=== PATIENT | female | born 1965 | race Caucasian/White ===

== ENCOUNTER 2023-01-18 13:28 | Outpatient (AMB) | payer OTHER, SELFPAY ==
[2023-01-18 13:35] VITALS: BP 140/96; PULSE 63; O2SAT 97; BMI 39.6
--- NOTE | 2023-01-18 13:35 | A.OFFPC_ITS ---
Vital Signs 01/18/23 13:35 01/18/23 15:05 Height 5 ft 2.5 in Weight 220 lb BMI 39.6 BP 140/96 H 120/85 Blood Pressure Location Lt brachial Lt brachial Position Sitting Sitting Pulse 63 Pulse Source Pulse Oximeter Pulse Oximetry (%) 97 Oxygen Delivery Method Room Air Intake Visit Reasons: Follow up after Urgent Care ongoing cough Intake Note: Pt is here today for a follow up visit on ongoing cough. Pt states that she has been having a cough since December 08. Pt states that she was seen a Urgent care multiple times. Pt states that she has a lot of yellow/green mucus. Allergies No Known Allergies Allergy (Verified 01/18/23 13:40) Medication List - Last Reconciled 01/18/23 by Rowan Downey MD famotidine (Pepcid) 40 mg PO BEDTIME ketoconazole 2% 1 appl topical DAILY nystatin 1 appl topical DAILY Tobacco use date assessed: 01/18/23 Dental Screening Dental Screen Date: 01/18/23 Did you have a dental visit in the last 12 months?: Yes Did you have a dental problem in the last 6 months where you did not have access to dental care?: No Was dental information given to patient?: Patient has dentist HPI Follow up after Urgent Care ongoing cough HPI0 Details Pt c/o persistent nasal discharge yellow-green and productive cough since October. Patient has been to urgent care multiple times and tried Flonase, albuterol inhaler, prednisone taper and antibiotic and cough meds without relief. CXR was negative on 12/16. 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 Patient denies chronic heartburn facial pain fever chills shortness of breath wheezing. She has been taking Zyrtec regularly but stopped taking famotidine. [facility] Medical History Dysuria Cough Sinusitis chronic, frontal GERD (gastroesophageal reflux disease) Annual physical exam Surgical History Hx of colonoscopy Social History Housing: House Patient Tobacco Use Status: Former Tobacco user e-Cigarette/Vaping Use: Never Used Current occupational status: employed Cognitive needs: No Hearing needs: No Vision needs: Yes Questionnaire Thrive Questionnaire Date Thrive assessed: 08/05/22 AUDIT C Alcohol Use Questionnaire (AUDIT-C) 1. How often do you have a drink containing alcohol?: Monthly or less 2. How many drinks containing alcohol do you have on a typical day when you are drinking?: 1 or 2 3. How often do you have six or more drinks on one occasion?: Never Total Score: 1 CECILIO-7 AMB Questionnaire CECILIO-7 Date CECILIO - 7 assessed: 08/05/22 Source: Developed by Drs. Rudy Harmon, Jasmin Brooke, Donald Garcia and colleagues, with an educational candido from [employer]. Review of Systems Const All systems reviewed & are unremarkable except as noted in HPI and below Reports no additional complaints Eyes Reports no additional complaints ENT Reports no additional complaints Card Reports no additional complaints Resp Reports no additional complaints GI Reports no additional complaints Physical exam (Primary Care) Vital Signs: Last Vital Signs Pulse 63 01/18/23 13:35 BP 140/96 H 01/18/23 13:35 Pulse Ox 97 01/18/23 13:35 Oxygen Delivery Method Room Air 01/18/23 13:35 BMI result Body Mass Index 39.6 Tobacco/Smoking Status: Tobacco use Status Tobacco use date assessed 01/18/23 01/18/23 13:41 Patient Tobacco Use Status Former Tobacco user 01/18/23 13:36 e-Cigarette/Vaping Use Never Used 01/18/23 13:36 Thrive Assessment: Date of Thrive Assessment Date Thrive assessed 08/05/22 01/18/23 13:36 Const General: no acute distress HENMT Head: Yes normal to inspection Ears: TM's normal bilaterally General nose exam: Normal nasal mucous membranes and turbinates present Face and sinus: Yes normal facial exam and No sinus tenderness Mouth: Normal oral and palatal mucosa present Throat: Yes posterior oropharynx normal and Yes postnasal drainage Eyes General: appearance normal, both eyes and all related structures Neck Neck: Yes no lymphadenopathy and Yes supple Resp Effort & Inspection: normal respiratory effort Auscultation: clear to auscultation bilaterally Cardio Rhythm: regular rhythm Heart sounds: S1 normal heart sound present and S2 normal heart sound present Assessment and Plan Assessment & Plan (1) Sinusitis chronic, frontal: Code(s): J32.1 - Chronic frontal sinusitis Plan: For recurrent chronic sinusitis patient will be referred to ENT for evaluation (2) Postnasal drip: Code(s): R09.82 - Postnasal drip Plan: Patient was advised to continue antihistamine and restart H2 gloria famotidine q.h.s. (3) Cough: Code(s): R05.9 - Cough, unspecified Plan: Continue saline nasal spray antihistamine and H2 gloria if the symptoms persist PFTs will be obtained to rule out asthma. Orders: Orders Comprehensive Met. Panel Today J32.1 - Chronic frontal sinusitis, R09.82 - Postnasal drip Sputum Cult + Gram stain Today R05.9 - Cough, unspecified Immunoglobulin E Today J32.1 - Chronic frontal sinusitis, R05.9 - Cough, unspecified Complete Blood Count Auto Diff Today J32.1 - Chronic frontal sinusitis, R09.82 - Postnasal drip Immunoglobulins,IgG IgA IgM Today J32.1 - Chronic frontal sinusitis, R05.9 - Cough, unspecified Referrals Ear/Nose/Throat Referral J32.1 - Chronic frontal sinusitis Coding Level of Care Code Est Pt Level 3 (99633) Diagnoses Sinusitis chronic, frontal J32.1 Postnasal drip R09.82 Cough R05.9
[2023-01-18 15:05] VITALS: BP 120/85
== END 2023-01-18 15:14 | disposition home or self-care (01) ==
PROVIDERS: PCP Internal Medicine; Visit Provider Internal Medicine
DX: J32.1 Chronic frontal sinusitis (principal); R09.82 Postnasal drip; R05.9 Cough, unspecified
CPT/HCPCS: 99213

== ENCOUNTER 2023-08-12 08:00 | Outpatient (AMB) | payer OTHER, SELFPAY ==
--- NOTE | 2023-08-12 08:04 | A.OFFPC_ITS ---
Vital Signs 08/12/23 08:05 Height 5 ft 2.5 in Weight 222 lb BMI 40.0 BP 124/80 Blood Pressure Location Lt brachial Position Sitting Pulse 67 Pulse Source Pulse Oximeter Pulse Oximetry (%) 97 Oxygen Delivery Method Room Air Intake Visit Reasons: Physical exam Intake Note: Pt is here today for PE. 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 Allergies No Known Allergies Allergy (Verified 08/12/23 08:06) Medication List - Last Reconciled 08/12/23 by Rowan Downey MD famotidine (Pepcid) 40 mg PO BEDTIME ipratropium bromide 2 sprays intranasal BID-TID PRN ketoconazole 2% 1 appl topical DAILY nystatin 1 appl topical DAILY Tobacco use date assessed: 08/12/23 Dental Screening Dental Screen Date: 08/12/23 Did you have a dental visit in the last 12 months?: Yes Did you have a dental problem in the last 6 months where you did not have access to dental care?: No Was dental information given to patient?: Patient has dentist HPI Physical exam HPI Details Pt presents for PE. [facility] Medical History Dysuria Cough Sinusitis chronic, frontal GERD (gastroesophageal reflux disease) Annual physical exam Surgical History Hx of colonoscopy Social History Housing: House Patient Tobacco Use Status: Former Tobacco user e-Cigarette/Vaping Use: Never Used service: No Current occupational status: employed Cognitive needs: No Hearing needs: No Vision needs: Yes Questionnaire PHQ-9 Over the last 2 weeks, how often have you been bothered by any of the following problems? 1. Little interest or pleasure in doing things: not at all 2. Feeling down, depressed, or hopeless: not at all 3. Trouble falling or staying asleep, or sleeping too much: several days 4. Feeling tired or having little energy: not at all 5. Poor appetite or overeating: not at all 6. Feeling bad about yourself - or that you are a failure or have let yourself or your family down: not at all 7. Trouble concentrating on things, such as reading the newspaper or watching television: not at all 8. Moving or speaking so slowly that other people could have noticed. Or the opposite - being so fidgety or restless that you have been moving around a lot more than usual: not at all 9. Thoughts that you would be better off or of hurting yourself in some way: not at all Total score: 1 Depression Screening Interpretation: Negative Depression Screening Done: Yes Source: Developed by Drs. Rudy Harmon, Jasmin Brooke, Donald Garcia and colleagues, with an educational candido from [employer] Thrive Questionnaire Date Thrive assessed: 08/12/23 I am a: Patient What is your living situation today?: I have a steady place to live Within the past 12 months, did the food you bought not last and you didn't have the money to get more?: Never true Within the past 12 months, did you worry whether your food would run out before you got money to buy more?: Never true Do you have trouble paying for medicines?: No Do you have trouble getting transportation to medical appointments?: No Do you have trouble paying your heating and electricity bill?: No Do you have trouble taking care of your child, family member or friend?: No Do you have trouble with day-to-day activities such as bathing, preparing meals, shopping, managing finances, etc.?: No Are you currently unemployed and looking for a job?: No Are you interested in more education?: No Please select the resources that you would like help with: None THRIVE Score: 0 AUDIT C Alcohol Use Questionnaire (AUDIT-C) 1. How often do you have a drink containing alcohol?: Monthly or less 2. How many drinks containing alcohol do you have on a typical day when you are drinking?: 1 or 2 3. How often do you have six or more drinks on one occasion?: Never Total Score: 1 CECILIO-7 AMB Questionnaire CECILIO-7 Date CECILIO - 7 assessed: 08/12/23 Feeling nervous, anxious, or on edge: 0 = Not at all Not being able to stop or control worryin = Not at all Worrying too much about different things: 0 = Not at all Trouble relaxin = Not at all Being so restless that it is hard to sit still: 0 = Not at all Becoming easily annoyed or irritable: 0 = Not at all Feeling afraid as if something awful might happen: 0 = Not at all Total CECILIO-7 score (0-4 normal; 5-9 mild; 10-14 moderate; 15-21 severe): 0 Source: Developed by Drs. Rudy Harmon, Jasmin Brooke, Donald Garcia and colleagues, with an educational candido from [employer] Review of Systems Const All systems reviewed & are unremarkable except as noted in HPI and below Reports no additional complaints Eyes Reports no additional complaints ENT Reports no additional complaints Card Reports no additional complaints Resp Reports no additional complaints GI Reports no additional complaints Reports no additional complaints Musc Reports no additional complaints Physical exam (Primary Care) Vital Signs: Last Vital Signs Pulse 67 08/12/23 08:05 BP 124/80 08/12/23 08:05 Pulse Ox 97 08/12/23 08:05 Oxygen Delivery Method Room Air 08/12/23 08:05 BMI result Body Mass Index 40.0 Tobacco/Smoking Status: Tobacco use Status Tobacco use date assessed 08/12/23 08/12/23 08:09 Patient Tobacco Use Status Former Tobacco user 08/12/23 08:04 e-Cigarette/Vaping Use Never Used 08/12/23 08:04 PHQ-9: PHQ-9 Score PHQ-9: Total score 1 08/12/23 08:30 Depression Screening Interpretation: Negative Thrive Assessment: Date of Thrive Assessment Date Thrive assessed 08/12/23 08/12/23 08:18 Const General: no acute distress HENMT Head: Yes normal to inspection Ears: hearing grossly normal bilaterally General nose exam: Normal external nose present Face and sinus: Yes normal facial exam Mouth: Normal oral and palatal mucosa present Throat: Yes posterior oropharynx normal Eyes General: appearance normal, both eyes and all related structures Neck Neck: Yes no lymphadenopathy and Yes supple Resp Effort & Inspection: normal respiratory effort Auscultation: clear to auscultation bilaterally Cardio Rhythm: regular rhythm Heart sounds: S1 normal heart sound present and S2 normal heart sound present GI Inspection: Yes normal to inspection Palpation (GI): Soft to palpation Percussion: Yes normal to percussion Auscultation: normal bowel sounds General: Yes Bimanual renal exam normal bilaterally Assessment and Plan Assessment & Plan (1) Hx of colonoscopy: Comment: 06/23 negative recheck 10 years Code(s): Z98.890 - Other specified postprocedural states (2) Annual physical exam: Code(s): Z00.00 - Encounter for general adult medical examination without abnormal findings Plan: Well-balanced diet regular physical activity discussed with the patient. She is up-to-date with a mammogram Pap smear and colonoscopy. (3) Normal pelvic exam: Comment: ob/gyn nurse 2023 Code(s): Z01.419 - Encounter for gynecological examination (general) (routine) without abnormal findings (4) Hx of screening mammography: Comment: 01/2023 Code(s): Z92.89 - Personal history of other medical treatment Orders: Orders Comprehensive [place]. Panel Fast Today Z00.00 - Encounter for general adult medical examination without abnormal findings TSH reflex Free T4 Today Z00.00 - Encounter for general adult medical examination without abnormal findings Vitamin D 25-OH Total Today Z00.00 - Encounter for general adult medical examination without abnormal findings Complete Blood Count Auto Diff Today Z00.00 - Encounter for general adult medical examination without abnormal findings Lipid Panel Today Z00.00 - Encounter for general adult medical examination without abnormal findings Vitamin B12 and Folate Today Z00.00 - Encounter for general adult medical examination without abnormal findings IRON PROFILE Today Z00.00 - Encounter for general adult medical examination without abnormal findings Coding Level of Care Code Est Pt Prev Care 40-64y(28626) Diagnoses Hx of colonoscopy Z98.890 Annual physical exam Z00.00 Normal pelvic exam Z01.419 Hx of screening mammography Z92.89
[2023-08-12 08:05] VITALS: BP 124/80; PULSE 67; O2SAT 97; BMI 40.0
== END 2023-08-12 08:55 | disposition home or self-care (01) ==
PROVIDERS: Visit Provider Internal Medicine
DX: Z98.890 Other specified postprocedural states (principal); Z00.00 Encounter for general adult medical examination without abnormal findings; Z01.419 Encounter for gynecological examination (general) (routine) without abnormal findings; Z92.89 Personal history of other medical treatment
CPT/HCPCS: 99396

== ENCOUNTER 2024-08-17 07:58 | Outpatient (AMB) | payer OTHER, SELFPAY ==
--- OUTSIDE RECORDS SUMMARY | 2024-08-17 08:03 | XMS_ITS ---
Author Organization [facility] Address [address] [address] Care Team Providers Care Weight Analyst Name Role Phone Shayan Rowan Primary Care Provider UnavailNENA Baumann Unavailable [phone] Allergies No Known Allergies REASON FOR VISIT Lt foot pain Medications Medication SIG (Take, Route, Frequency, Duration) Notes Start Date End Date Status Famotidine 40 MG 1 tablet Orally Once a day Not-Taking Ipratropium [place] 0.03 % 2 sprays in each nostril Nasally Twice a day Not-Taking Ketoconazole 2 % 1 application Externally Once a day Not-Taking Nystatin Not-Taking Problems Problem Type SNOMED Code ICD Code Onset Dates Problem Status W/U Status Risk Notes Problem 09127744760705 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 [address] [address] 04/21/2024 NENA TERRELL Left foot pain M79.6 72 ; Fibrosis of left subtalar joint M24.672 and Gastrocnemius equinus of left lower extremity M62.462 Assessments Encounter Date Diagnosis (ICD Code) Assessment Notes Treatment Notes Treatment Clinical Notes Section Notes 04/21/2024 Left foot pain (ICD-10 - M79.672) Patient examined and evaluated. Past medical history reviewed. Three weightbearing radiographs of the left foot were taken in the office today. She has pain around her left subtalar joint and into the left sinus tarsi with any increase in activty or uneven surface ambulation. 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 This is likely a culprit of the pain. She also has significant calf tightness. I advised that she needs to start calf stretching before and after any activity. I also advised using an ankle brace on the left when doing any prolonged walking to help stabilize the rearfoot joints. I gave her stretching exercises and brace recommendations. If her pain continues or worsens, I advise she follow back up in the office. She expressed understanding of this. 04/21/2024 Fibrosis of left subtalar joint (ICD-10 - M24.672) 04/21/2024 Gastrocnemius equinus of left lower extremity (ICD-10 - M62.462) Plan Of Treatment Treatment Notes Assessment Notes Left foot pain Patient examined and evaluated. Past medical history reviewed. Three weightbearing radiographs of the left foot were taken in the office today. She has pain around her left subtalar joint and into the left sinus tarsi with any increase in activty or uneven surface ambulation. 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 This is likely a culprit of the pain. She also has significant calf tightness. I advised that she needs to start calf stretching before and after any activity. I also advised using an ankle brace on the left when doing any prolonged walking to help stabilize the rearfoot joints. I gave her stretching exercises and brace recommendations. If her pain continues or worsens, I advise she follow back up in the office. She expressed understanding of this. Pending Test Test Name Order Date X ray : Foot, left 3v 04/21/2024 Progress Notes * Mary LESTERraDOB: 6 (58 yo F)Acc No.[id number]:04/21/2024 Consult note Patient:?Amy LESTER Provider:?Nena Lynn DPM :1965???Age:58 Y???Sex:Female D ate:04/21/2024 Phone: Address:[address] [place], [place] [address], [id number] Pcp:Rowan Downey Subjective: * Chief Complaints: * ???Lt foot pain * HPI: ???Foot & Ankle:? Ms. Lester is a pleasant 58 year old female who presents for a consultation. She has been noticing pain in the left foot and ankle region. She states this seems to be associated with her walking on uneven surfaces or when she increases her daily walking exercise. She states she has no pain currently has she has not been doing much walking. She states the pain started last summer and then went away during the fall and winter and then restarted again this summer into January and has since gone away. She has no swelling associated with it. She did get a new pair of sneakers and did a round of acupuncture and this was helpful for her. She denies any past injuries to the left foot and or ankle. * ROS:?General/Constitutional:?Denies?Chills.?Denies?Fatigue.?Denies?Fever.?Denies?Headache.?Allergy/Immunology:?Denies?Hives.?Denies?Itching.?Denies?Rash.?Endocrine:?Denies?Excessive sweating.?Denies?Excessive thirst.?Denies?Frequent urination.?Respiratory:?Denies?Cough.?Denies?Shortness of breath,?denies.?Denies?Wheezing.?Cardiovascular:?Denies?Chest pain.?Denies?Claudication.?Denies?Cyanosis.?Gastrointestinal:?Denies?Abdominal pain.?Denies?Constipation.?Denies?Diarrhea.?Hematology:?Denies?Bleeding problems,?denies.?Denies?Easy bruising,?denies.?Denies?Swollen glands.?Musculoskeletal:?Patient complaining of?left foot and ankle pain.?Denies?Joint stiffness.?Denies?Leg cramps.?Peripheral Vascular:?Denies?Blanching of skin.?Blood clots in legs?Denies.?Denies?Cold extremities.?Skin:?Denies?Masses.?Denies?Nail changes.?Denies?Skin lesion(s).?Neurologic:?Denies?Paralysis.?Denies?Tingling/Numbness.?Denies?Tremor.?Psychiatric:?Denies?Auditory/visual hallucinations.?Denies?Delusions.?Denies?Suicidal thoughts.? * Medical History:? * Surgical History:?gallbladde r removed * Hospitalization/Major Diagno stic Procedure:?Denies Past Hospitalization * Family History:? diabetes, cancer, high blood pressure. * Social History:?tobacco: former tobacco user alcohol: monthly or less. * Medications:?Not-TakingNysta tin Ketoconazole 2 % Cream 1 application Externally Once a day Ipratropium [place] 0.03 % Solution 2 sprays in each nostril Nasally Twice a day Famotidine 40 MG Tablet 1 tablet Orally Once a day Medication List reviewed and reconciled with the patientNot-Taking Nystatin Not-Taking Ketoconazole 2 % Cream 1 application Externally Once a day Not-Taking Ipratropium [place] 0.03 % Solution 2 sprays in each nostril Nasally Twice a day Not-Taking Famotidine 40 MG Tablet 1 tablet Orally Once a day Medication List reviewed and reconciled with the patient * Allergies:?N.K.D.A.no[Allerg ies Verified] Objective: * Vitals:?Wt:209.8lbs, BMI:38. 37Index, Ht-cm: 157.48, Wt-k.16 kg. * Examination: ???General Examination: ???This is a middle aged female. Alert and oriented today and in no acute distress. Patient comes in ambulating in high heel boots without using any assistive devices. Breathing is regular and unlabored while sitting. Affect is pleasant and cooperative. No unusual anxiety or depression noted. Hearing intact to spoken word. No evidence of visual impairment that would impact self care or ambulation. Patient has palpable dorsalis pedis and posterior tibial pulse bilaterally. No varicosities visualized. Capillary refill is less than 3 seconds to all digits bilaterally. Light touch sensation is symmetrical to all lower extremity dermatomes. Babinski is downgoing. Xerosis to the plantar aspect of the heel. There are no open wounds, rashes, or lesions noted. There is tenderness with pressure into the left sinus tarsi and some stiffness with left subtalar joint range of motion, no crepitus. Left ankle joint range of motion in unrestricted and nonpainful. There is significant gastrocnemius equinus present bilaterally. 5/5 strength for anterior, posterior, and lateral lower extremity muscle groups on the left and right. Therapeutic Interventions: Assessment: * Assessment: 1.?Left foot pain - M79.672 (Primary)?2.?Fibrosis of left subtalar joint - M24.672?3.?Gastrocnemius equinus of left lower extremity - M62.462? Plan: * Treatment: 2.?Fibrosis of left subtalar joint?Imaging: X ray : Foot, left 3v 3.?Gastrocnemius equinus of left lower extremity?Imaging: X ray : Foot, left 3v * Procedures:?LEFT FOOT RADIOGRAPHS 04/21/2024 3 weight bearing views (AP, LAT, LO PROJECTION/MO VIEW) Taken in the office and read by the physician. Osseous mineralization is age appropriate. There are no acute fractures or dislocations. No abnormal bone lesions or tumors. 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 Small plantar calcaneal enthesophyte present. ? * Procedure Codes:?25185 X-RAY EXAM OF FOOT 3 Views, Modifiers: LT * Billing Information: * Visit Code:? 15385 Office Visit, New Pt., Level 3. * Procedure Codes:? 12312 X-RAY EXAM OF FOOT 3 Views. Modifiers: LT * Sign off status: Completed true * Provider:Kade Lynn DPStephania Date:?04/21 Generated for Michelle bermeo/Delilah/eTbeckysmitting on:?08/17/2024 08:03 AM EDT History and Physical Notes * Examination Category Sub-Category Detail Notes Category Not es General Examination This is a middle aged female. Alert and oriented today and in no acute distress. Patient comes in ambulating in high heel boots without using any assistive devices. Breathing is regular and unlabored while sitting. Affect is pleasant and cooperative. No unusual anxiety or depression noted. Hearing intact to spoken word. No evidence of visual impairment that would impact self care or ambulation. Patient has palpable dorsalis pedis and posterior tibial pulse bilaterally. No varicosities visualized. Capillary refill is less than 3 seconds to all digits bilaterally. Light touch sensation is symmetrical to all lower extremity dermatomes. Babinski is downgoing. Xerosis to the plantar aspect of the heel. There are no open wounds, rashes, or lesions noted. There is tenderness with pressure into the left sinus tarsi and some stiffness with left subtalar joint range of motion, no crepitus. Left ankle joint range of motion in unrestricted and nonpainful. There is significant gastrocnemius equinus present bilaterally. 5/5 strength for anterior, posterior, and lateral lower extremity muscle groups on the left and right.
--- OUTSIDE RECORDS SUMMARY | 2024-08-17 08:03 | XMS_ITS ---
Author Organization [facility] Address [address] [place] [address] Care Team Providers Care Traffic Expert Name Role Phone Rowan Downey MD Primary Care Provider Unavaila Luca Snow Unavailable [phone] REASON FOR VISIT HEAD WAITRESS Encounters Encounter Location Date Provider Diagnosis [facility] [address] [place] [address] 02/22/2024 Luca Vasquez Plan Of Treatment No Information Progress Notes * Kiet LESTEROB: 6 (58 yo F)Acc No.[id number]:02/22/2024 Patient:?Amy Lester :1965???Age:58 Y???Sex:Female Address: [place] [address] * true * Date:? Generated for Juanitoi elvie/Delilah/eTransmitting on:?08/17/2024 08:03 AM EDT
--- OUTSIDE RECORDS SUMMARY | 2024-08-17 08:03 | XMS_ITS ---
Author Organization [facility] Address [address] [address] Care Team Providers Care Player Development Manager Name Role Phone Rowan Downey Primary Care Provider KALEIGH Augustin Unavailable [phone] REASON FOR VISIT Medical Records Encounters Encounter Location Date Provider Diagnosis [facility] [address] [address] 02/22/2024 KALEIGH TERRELL Plan Of Treatment No Information Progress Notes * Kiet LESTEROB: 6 (58 yo F)Acc No.[id number]:02/22/2024 Patient:?Amy LESTER :1965???Age:58 Y???Sex:Female Phone: Address: [place] [address] * true * Date:? Generated for Michelle bermeo/Delilah/eTransmitting on:?08/17/2024 08:03 AM EDT
--- OUTSIDE RECORDS SUMMARY | 2024-08-17 08:04 | XMS_ITS ---
Author Organization [facility] Address [address] [place] [address] Care Team Providers Care Hardware Developer Name Role Phone Shayan TAVERAS, Rowan Primary Care Provider UnavailLuca Squires Unavailable [phone] Encounters Encounter Location Date Provider Diagnosis [facility] [address] [address] 03/27/2024 Luca Vasquez Plan Of Treatment No Information Progress Notes * GIDEON, AudBenitaOB: 6 (58 yo F)Acc No.[id number]:03/27/2024 Progress Notes Patient:?Amy MENESES Provider:?Luca Vasquez DPM :1965???Age:58 Y???Sex:Female D ate:03/27/2024 [facility] [address] [facility] Pcp:Rwoan Downey MD Subjective: * Chief Complaints: * ??? * Medical History:? Objective: * Vitals:? Assessment: Plan: * Treatment: * Images: * The named appointment provid er may or may not be the originator of this progress note, and it is not deemed complete until electronically signed by the appointment provider. Sign off status: Pending * Provider:?Luca Vasquez DPM Date:?2023 Generated for Michelle bermeo/Delilah/eTbeckysmitting on:?08/17/2024 08:04 AM EDT
--- OUTSIDE RECORDS SUMMARY | 2024-08-17 08:04 | XMS_ITS | Patient Health Record ---
Author Organization [facility] Address [address] [place] [address] Care Team Providers Care Billing Rep Name Role Phone Rowan Downey MD Primary Care Provider Luca Daniels [phone] Reason For Referral No Information Encounters Encounter Location Date Provider Diagnosis [facility] [address] [place] [address] 02/22/2024 Luca Vasquez Plan Of Treatment No Information Insurance Providers Payer Name Payer Address Payer Phone Subscriber Number Group Number Insured Name Patient Relationship to Insured Coverage Start Date Coverage End Date [facility] [address] [place] [id number] Amy Lester Self - patient is the insured
--- OUTSIDE RECORDS SUMMARY | 2024-08-17 08:04 | XMS_ITS | Patient Health Record ---
Author Organization [facility] Address [address] [address] Care Team Providers Care Public Address System Operator Name Role Phone Shayan Rowan Primary Care Provider UnavailKALEIGH Baumann Unavailable [phone] Allergies No Known Allergies Reason For Referral No Information Medications Medication SIG (Take, Route, Frequency, Duration) Notes Start Date End Date Status Famotidine 40 MG 1 tablet Orally Once a day Not-Taking Ipratropium [place] 0.03 % 2 sprays in each nostril Nasally Twice a day Not-Taking Ketoconazole 2 % 1 application Externally Once a day Not-Taking Nystatin Not-Taking Problems Problem Type SNOMED Code ICD Code Onset Dates Problem Status W/U Status Risk Notes Problem 69820280197177 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 Problem 818792742 Gastrocnemius equinus of left lower extremity (M62.462) Active confirmed Vital Signs Weight 209.8 lbs 04/21/2024 BMI 38.37 kg/m2 04/21/2024 Encounters Encounter Location Date Provider Diagnosis [facility] [address] [address] 04/21/2024 KALEIGH TERRELL Left foot pain M79.6 72 ; Fibrosis of left subtalar joint M24.672 and Gastrocnemius equinus of left lower extremity M62.462 [facility] [address] [address] 02/22/2024 KALEIGH TERRELL Assessments Encounter Date Diagnosis (ICD Code) Assessment [...] extremity (ICD-10 - M62.462) Plan Of Treatment Pending Test Test Name Order Date X ray : Foot, left 3v 04/21/2024 Insurance Providers Payer Name Payer Address Payer Phone Subscriber Number Group Number Insured Name Patient Relationship to Insured Coverage Start Date Coverage End Date [facility] [address] [place] [phone] [id number] Amy Lester Self - patient is the insured Medical (General) History Medical History History ICD Code dysuria cough sinusitis chronic, frontal GERD Surgical History Surgery Date(Month/Year) gallbladder removed
--- OUTSIDE RECORDS SUMMARY | 2024-08-17 08:04 | XMS_ITS ---
Author Organization [facility] Address [address] [address] Care Team Providers Care Bullet Slug Casting Machine Operator Name Role Phone Rowan Downey Primary Care Provider Unavailabl NENA Mccoy Unavailable [phone] REASON FOR VISIT Lt foot pain Medications Medication SIG (Take, Route, Frequency, Duration) Notes Start Date End Date Status Ipratropium [place] 0.03 % 2 sprays in e ach nostril Nasally Twice a day Active Ketoconazole 2 % 1 application Area Plant Manager ally Once a day Active Famotidine 40 MG 1 tablet Orally Once a day Active Nystatin Active Vital Signs Height 5ft 2in in 03/28/2024 Encounters Encounter Location Date Provider Diagnosis [facility] [address] [address] 03/28/2024 NENA TERRELL Plan Of Treatment No Information Progress Notes * Mary LESTERraDOB: 6 (58 yo F)Acc No.[id number]:03/28/2024 Consult note Patient:?Amy LESTER Provider:?Nena Lynn DPM :1965???Age:58 Y???Sex:Female D ate:03/28/2024 Phone: Address:[address] [place] [address] [facility] [id number] Pcp:Rowan Downey Subjective: * Chief Complaints: * ???1. Lt foot pain. * Medical History:?Dysuria, Co ugh, Sinusitis chronic, frontal, GERD. * Social History:?tobacco: former tobacco user alcohol: monthly or less. * Medications:?Taking Nystatin , Taking Ketoconazole 2 % Cream 1 application Externally Once a day , Taking Ipratropium [place] 0.03 % Solution 2 sprays in each nostril Nasally Twice a day , Taking Famotidine 40 MG Tablet 1 tablet Orally Once a day Objective: * Vitals:?Ht: 5ft 2in, Ht-cm: 157.48. Therapeutic Interventions: Assessment: Plan: * Treatment: * Billing Information: * Visit Code:? * Procedure Codes:? * Electronic signature of Feli BANEGASPIrene on 08/17/2024 at 08:03 AM EDT Sign off status: Pending * Provider:?Nena Lynn DPM Date:?03/28 Generated for Michelle bermeo/Delilah/Stefano on:?08/17/2024 08:03 AM EDT
--- NOTE | 2024-08-17 08:10 | A.OFFPC_ITS ---
Vital Signs 08/17/24 08:11 Height 5 ft 2.5 in Weight 214 lb BMI 38.5 BP 118/74 Blood Pressure Location Lt brachial Position Sitting Respiration 18 Pulse 65 Pulse Source Pulse Oximeter Temp 98.3 F Temp Source Oral Pulse Oximetry (%) 97 Oxygen Delivery Method Room Air Intake Visit Reasons: Annual PE Intake Note: Pt is here today for PE. Allergies No Known Allergies Allergy (Verified 08/17/24 08:13) Medication List - Last Reconciled 08/17/24 by Rowan Downey MD famotidine (Pepcid) 40 mg PO BEDTIME ipratropium bromide 2 sprays intranasal BID-TID PRN ketoconazole 2% 1 appl topical DAILY nystatin 1 appl topical DAILY Tobacco use date assessed: 08/17/24 Dental Screening Dental Screen Date: 08/17/24 Did you have a dental visit in the last 12 months?: Yes Did you have a dental problem in the last 6 months where you did not have access to dental care?: No Was dental information given to patient?: Patient has dentist HPI Annual PE HPI Details Patient presents for physical [facility] Medical History (Updated 08/17/24 @ 14:36 by Rowan Downey MD) Dysuria Cough Sinusitis chronic, frontal GERD (gastroesophageal reflux disease) Annual physical exam Surgical History Hx of colonoscopy Social History Housing: House Patient Tobacco Use Status: Former Tobacco user e-Cigarette/Vaping Use: Never Used service: No Current occupational status: employed Cognitive needs: No Hearing needs: No Vision needs: Yes Questionnaire PHQ-9 Over the last 2 weeks, how often have you been bothered by any of the following problems? 1. Little interest or pleasure in doing things: not at all 2. Feeling down, depressed, or hopeless: not at all 3. Trouble falling or staying asleep, or sleeping too much: not at all 4. Feeling tired or having little energy: not at all 5. Poor appetite or overeating: not at all 6. Feeling bad about yourself - or that you are a failure or have let yourself or your family down: not at all 7. Trouble concentrating on things, such as reading the newspaper or watching television: not at all 8. Moving or speaking so slowly that other people could have noticed. Or the opposite - being so fidgety or restless that you have been moving around a lot more than usual: not at all 9. Thoughts that you would be better off or of hurting yourself in some way: not at all Total score: 0 Depression Screening Interpretation: Negative Depression Screening Done: Yes 83484 - PHQ-9 Billing: Yes Source: Developed by Drs. Rudy Harmon, Jasmin Brooke, Donald Garcia and colleagues, with an educational candido from [employer]. Thrive Questionnaire Date Thrive assessed: 08/17/24 I am a: Patient What is your living situation today?: I have a steady place to live Within the past 12 months, did the food you bought not last and you didn't have the money to get more?: Never true Within the past 12 months, did you worry whether your food would run out before you got money to buy more?: Never true Do you have trouble paying for medicines?: No Do you have trouble getting transportation to medical appointments?: No Do you have trouble paying your heating and electricity bill?: No Do you have trouble taking care of your child, family member or friend?: No Do you have trouble with day-to-day activities such as bathing, preparing meals, shopping, managing finances, etc.?: No Are you currently unemployed and looking for a job?: No Are you interested in more education?: No Please select the resources that you would like help with: None Currently or been in a relationship where the following occur: No concerns reported THRIVE Score: 0 AUDIT C Alcohol Use Questionnaire (AUDIT-C) 1. How often do you have a drink containing alcohol?: 2-4 times a month 2. How many drinks containing alcohol do you have on a typical day when you are drinking?: 1 or 2 3. How often do you have six or more drinks on one occasion?: Never Total Score: 2 CECILIO-7 AMB Questionnaire CECILIO-7 Date CECILIO - 7 assessed: 08/17/24 Feeling nervous, anxious, or on edge: 0 = Not at all Not being able to stop or control worryin = Nearly every day Worrying too much about different things: 3 = Nearly every day Trouble relaxin = Several days Being so restless that it is hard to sit still: 0 = Not at all Becoming easily annoyed or irritable: 0 = Not at all Feeling afraid as if something awful might happen: 0 = Not at all Total CECILIO-7 score (0-4 normal; 5-9 mild; 10-14 moderate; 15-21 severe): 7 Source: Developed by Drs. Rudy Harmon, Jasmin Brooke, Donald Garcia and colleagues, with an educational candido from [employer]. CECILIO-7 Assessment Billing CECILIO-7 Assessment Tool: CECILIO-7 Assessment 52006 Review of Systems Const All systems reviewed & are unremarkable except as noted in HPI and below Reports no additional complaints Eyes Reports no additional complaints ENT Reports no additional complaints Card Reports no additional complaints Resp Reports no additional complaints GI Reports no additional complaints Reports no additional complaints Musc Reports no additional complaints Physical exam (Primary Care) Vital Signs: Last Vital Signs Temp 98.3 F 08/17/24 08:11 Pulse 65 08/17/24 08:11 Resp 18 08/17/24 08:11 BP 118/74 08/17/24 08:11 Pulse Ox 97 08/17/24 08:11 Oxygen Delivery Method Room Air 08/17/24 08:11 BMI result Body Mass Index 38.5 Tobacco/Smoking Status: Tobacco use Status Tobacco use date assessed 08/17/24 08/17/24 08:17 Patient Tobacco Use Status Former Tobacco user 08/17/24 08:10 e-Cigarette/Vaping Use Never Used 08/17/24 08:10 PHQ-9: PHQ-9 Score PHQ-9: Total score 0 08/17/24 08:36 Depression Screening Interpretation: Negative Thrive Assessment: Date of Thrive Assessment Date Thrive assessed 08/17/24 08/17/24 08:17 Currently or been in a relationship where the following occur: No concerns reported Const General: no acute distress HENMT Head: Yes normal to inspection Face and sinus: Yes normal facial exam Mouth: Normal oral and palatal mucosa present Eyes General: appearance normal, both eyes and all related structures Resp Effort & Inspection: normal respiratory effort Auscultation: clear to auscultation bilaterally Cardio Rhythm: regular rhythm Heart sounds: S1 normal heart sound present and S2 normal heart sound present GI Inspection: Yes normal to inspection Palpation (GI): Soft to palpation Percussion: Yes normal to percussion Auscultation: normal bowel sounds Coding Level of Care Code Est Pt Prev Care 40-64y(50216) Diagnoses Annual physical exam Z00.00 Hx of screening mammography Z92.89 Hx of colonoscopy Z98.890 Additional Codes CECILIO-7 Assessment Billing - CECILIO-7 Assessment Tool: CECILIO-7 Assessment 33894 ([id number]) PHQ-9 - 18211 - PHQ-9 Billing: Yes ([id number]) Assessment & Plan Assessment & Plan (1) Annual physical exam: Code(s): Z00.00 - Encounter for general adult medical examination without abnormal findings Category: Medical Plan: Well-balanced diet regular physical activity discussed with the patient. She is established with geophysical party chief for Pap smear mammogram and is up-to-date with colonoscopy. Patient will have a fasting blood work today. (2) Hx of screening mammography: Comment: 01/2024 Code(s): Z92.89 - Personal history of other medical treatment Category: Medical Plan: Up-to-date with mammogram (3) Hx of colonoscopy: Comment: 06/23 negative recheck 10 years Code(s): Z98.890 - Other specified postprocedural states Category: Surgical Plan: Up-to-date with colonoscopy Orders: Orders TSH reflex Free T4 Today Z00.00 - Encounter for general adult medical examination without abnormal findings Vitamin D 25-OH Total Today Z00.00 - Encounter for general adult medical examination without abnormal findings Comprehensive Cocoa. Panel Fast 1 Year Z00.00 - Encounter for general adult medical examination without abnormal findings Lipid Panel 1 Year Z00.00 - Encounter for general adult medical examination without abnormal findings TSH reflex Free T4 1 Year Z00.00 - Encounter for general adult medical examination without abnormal findings UA w Microscopic 1 Year Z00.00 - Encounter for general adult medical examination without abnormal findings Hemoglobin A1c 1 Year Z00.00 - Encounter for general adult medical examination without abnormal findings Comprehensive Cocoa. Panel Fast Today Z00.00 - Encounter for general adult medical examination without abnormal findings Complete Blood Count Auto Diff Today Z00.00 - Encounter for general adult medical examination without abnormal findings Lipid Panel Today Z00.00 - Encounter for general adult medical examination without abnormal findings Complete Blood Count Auto Diff 1 Year Z00.00 - Encounter for general adult medical examination without abnormal findings Hemoglobin A1c Today Z00.00 - Encounter for general adult medical examination without abnormal findings Medications: Refilled famotidine (Pepcid) 40 mg PO BEDTIME 90 tabs 1RF
[2024-08-17 08:11] VITALS: BP 118/74; PULSE 65; RESP 18; TEMP 36.8; O2SAT 97; BMI 38.5
== END 2024-08-17 08:49 | disposition home or self-care (01) ==
LOC: HO.HMCC 07:59
PROVIDERS: PCP Internal Medicine; Visit Provider Internal Medicine
DX: Z00.00 Encounter for general adult medical examination without abnormal findings (principal); Z92.89 Personal history of other medical treatment; Z98.890 Other specified postprocedural states

== ENCOUNTER → 2024-08-17 07:58 | Outpatient (BNVA) | payer OTHER, SELFPAY | PROVIDERS: PCP Internal Medicine; Visit Provider Internal Medicine | DX: Z00.00 Encounter for general adult medical examination without abnormal findings (principal) | CPT/HCPCS: 96127 ==

== ENCOUNTER 2025-01-03 13:46 | Outpatient (AMB) | payer OTHER, SELFPAY ==
--- OUTSIDE RECORDS SUMMARY | 2024-03-27 09:00 | XMS_ITS ---
Author Organization [facility] Address [address] [place] [address] Care Team Providers Care Industrial Chemicals Supervisor Name Role Phone Shayan TAVERAS, Rowan Primary Care Provider UnavailLuca Squires Unavailable [phone] Encounters Encounter Location Date Provider Diagnosis [facility] [address] [address] 03/27/2024 Luca Vasquez Plan Of Treatment No Information Progress Notes * Kiet LESTEROB: 6 (59 yo F)Acc No.[id number]:03/27/2024 Progress Notes Patient: Amy BARRERA Provider: Sylwia Vasquez DPM :1965 A ge:58 Y S ex:Female Date:03/27/2024 Address: [address] [place], [place] Pcp:Rowan Downey MD Subjective: * Chief Complaints: * * Medical History: Objective: * Vitals: Assessment: Plan: * Treatment: * Images: * The named appointment provid er may or may not be the originator of this progress note, and it is not deemed complete until electronically signed by the appointment provider. Sign off status: Pending * Provider: Sylwia Vasquez DPM Date: 05/27/2023 Generated for Michelle bermeo/Delilah/eTbeckysmitting on: 0 01/03/2025 03:55 PM EDT
--- OUTSIDE RECORDS SUMMARY | 2024-03-28 11:15 | XMS_ITS ---
Author Organization [facility] Address [address] [address] Care Team Providers Care Rehab Tech Name Role Phone Rowan Downey Primary Care Provider Unavailabl KALEIGH Mccoy Unavailable [phone] REASON FOR VISIT Lt foot pain Medications Medication SIG (Take, Route, Frequency, Duration) Notes Start Date End Date Status Ipratropium [place] 0.03 % 2 sprays in e ach nostril Nasally Twice a day Active Ketoconazole 2 % 1 application Residential Property Consultant ally Once a day Active Famotidine 40 MG 1 tablet Orally Once a day Active Nystatin Active Vital Signs Height 5ft 2in in 03/28/2024 Encounters Encounter Location Date Provider Diagnosis [facility] [address] [address] 03/28/2024 KALEIGH TERRELL Plan Of Treatment No Information Progress Notes * Kiet LESTEROB: 6 (59 yo F)Acc No.[id number]:03/28/2024 Consult note Patient: Amy BARRERA Provider: Alcon Lynn DPM :1965 A ge:58 Y S ex:Female Date:03/28/2024 Phone: Address:[address] [place] [address] [place], [id number] Pcp:Rowan Downey Subjective: * Chief Complaints: * 1 . Lt foot pain. * Medical History: D ysuria, Cough, Sinusitis chronic, frontal, GERD. * Social History: t obacco: former tobacco user alcohol: monthly or less. * Medications: T aking Nystatin , Taking Ketoconazole 2 % Cream 1 application Externally Once a day , Taking Ipratropium [place] 0.03 % Solution 2 sprays in each nostril Nasally Twice a day , Taking Famotidine 40 MG Tablet 1 tablet Orally Once a day Objective: * Vitals: H t: 5ft 2in, Ht-cm: 157.48. Therapeutic Interventions: Assessment: Plan: * Treatment: * Billing Information: * Visit Code: * Procedure Codes: * Electronic signature of AMOR TERRELL D.P.M. on 01/03/2025 at 03:55 PM EDT Sign off status: Pending * Provider: Alcon Lynn DPM Date: 05/28/2023 Generated for Michelle bermeo/Delilah/Delaneyitting on: 0 01/03/2025 03:55 PM EDT
--- NOTE | 2025-01-03 13:51 | AM.OFFWIN_ITS ---
Intake Vital Signs 01/03/25 13:56 Height 5 ft 2.5 in Weight 213 lb BMI 38.3 BP 118/84 Blood Pressure Location Lt brachial Position Sitting Pulse 61 Pulse Source Pulse Oximeter Temp 98.0 F Temp Source Oral Pulse Oximetry (%) 98 Oxygen Delivery Method Room Air Intake Visit Reasons: ep pt almost passed out at gym yesterday Intake Note: pt presents with concern for near syncope episode yesterday while stretching directly after HIIT exercising yesterday evening, later felt shaky, nausea, fatigue and head pressure and still feeling this today along with posterior neck tenderness Patient Tobacco Use Status: Former Tobacco user Allergies No Known Allergies Allergy (Verified 01/03/25 14:00) Do you need a note to return to daycare/school/sports/work: No HPI HPI Comments History of Present Illness Details History of Present Illness - The patient is a 59-year-old female pr esenting with dizziness and nausea. - Dizziness occurred during a cooldown a fter an intense workout, with spinning sensations noted when turning left. - Severe dizziness was experienced upon sitting up, requiring the patient to cover her eyes due to the intensity. - Nausea and an unusual headache persist ed post-workout, with the patient feeling unable to eat and experiencing a sensation of wanting to vomit. - Shortness of breath was reported, attr ibuted to weather changes, with a history of sinus issues and postnasal drip. - The patient has a history of anemia, r esolved post-menopause, and denies any new medications or dietary changes contributing to symptoms. - The patient leads a sedentary lifestyl e due to her occupation, with occasional intense workouts. - The patient has a history of sinus iss ues. - She admits that she took her allergy m edication and nasal spray once over the weekend. - Does not take it consistently.. - She denies associated chest pain, SOB, nausea, vomiting, visual changes, blurry vision, left sided chest pain, or left arm pain. Physical Exam General: Cooperative, healthy appearing, comfortable, no acute distress and well developed Orientation: Patient oriented x3 Limitations: No limitations Head: Normal to inspection Ears: Hearing grossly normal bilaterally Nose: Normal external nose present Face and sinus: Normal facial exam. No frontal or maxillary sinus pain on palpation. Eyes: Appearance normal, both eyes and all related structures. Neck: Normal visual inspection and Yes full ROM Respiratory: Normal respiratory effort and able to speak in complete sentences. Clear to auscultation bilaterally. No w/r/r noted. Cardiovascular: Regular rate and rhythm. Normal S1 and S2 GI: Normal to inspection. Soft to palpation and nontender, non-distended. No TTP. Skin: No rashes or lesions noted Neuro: Patient oriented x3. CN II-XII intact. Patient was informed and verbally consented to the use of an ambient scribe for clinic note documentation during this visit. [facility] Medical History Dysuria Cough Sinusitis chronic, frontal GERD (gastroesophageal reflux disease) Annual physical exam Surgical History Hx of colonoscopy Social History Housing: House Patient Tobacco Use Status: Former Tobacco user e-Cigarette/Vaping Use: Never Used service: No Current occupational status: employed Cognitive needs: No Hearing needs: No Vision needs: Yes Review of Systems Const All systems reviewed & are unremarkable except as noted in HPI and below Physical Exam Vital Signs: Last Vital Signs Temp 98.0 F 01/03/25 13:56 Pulse 61 01/03/25 13:56 BP 118/84 01/03/25 13:56 Pulse Ox 98 01/03/25 13:56 Oxygen Delivery Method Room Air 01/03/25 13:56 BMI result Body Mass Index 38.3 Assessment & Plan Assessment & Plan (1) Dizziness: Code(s): R42 - Dizziness and giddiness (2) Pre-syncope: Code(s): R55 - Syncope and collapse Plan EKG in the office was normal Had an episode of dizziness after an intense work out in the gym with some nausea now and dizziness Plan 1. Dizziness/presyncope - Conduct an EKG to rule out cardiac causes. - drink plenty of fluids - exercise as tolerated - Perform laboratory tests to assess blood sugar, thyroid function, anemia, and electrolyte imbalances. - follow up with PCP - may need further work up 2. Sinus Issues - Recognize chronic sinus issues as a potential factor in dizziness and nausea. - continue with nasal spray and allergy medication - f/u with ENT Orders: Orders TSH reflex Free T4 Today R42 - Dizziness and giddiness Complete Blood Count Auto Diff Today R42 - Dizziness and giddiness AMB EKG-In Office Today R07.9 - Chest pain, unspecified Comprehensive Met. Panel Today R42 - Dizziness and giddiness Hemoglobin A1c Today R42 - Dizziness and giddiness Coding Level of Care Code Est Pt Level 4 (69050) Diagnoses Dizziness R42 Pre-syncope R55
[2025-01-03 13:56] VITALS: BP 118/84; PULSE 61; TEMP 36.7; O2SAT 98; BMI 38.3
--- OUTSIDE RECORDS SUMMARY | 2025-01-03 15:55 | XMS_ITS | Patient Health Record ---
Author Organization [facility] Address [address] [address] Care Team Providers Care Wheel Presser Name Role Phone Shayan Rowan Primary Care Provider UnavailKALEIGH Baumann Unavailable [phone] Allergies No Known Allergies Reason For Referral No Information Medications Medication SIG (Take, Route, Frequency, Duration) Notes Start Date End Date Status Famotidine 40 MG 1 tablet Orally Once a day Not-Taking Ipratropium [place] 0.03 % 2 sprays in each nostril Nasally Twice a day Not-Taking Ketoconazole 2 % 1 application Externally Once a day Not-Taking Nystatin Not-Taking Problems Problem Type SNOMED Code ICD Code Onset Dates Problem Status W/U Status Risk Notes Problem 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 (323636187) 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 Problem Spasm (90531914) Gastrocnemius equinus of left lower extremity (M62.462) Active confirmed Vital Signs Weight 209.8 lbs 04/21/2024 BMI 38.37 kg/m2 04/21/2024 Encounters Encounter Location Date Provider Diagnosis [facility] [address] [address] 04/21/2024 KALEIGH TERRELL Left foot pain M79.6 72 ; Fibrosis of left subtalar joint M24.672 and Gastrocnemius equinus of left lower extremity M62.462 [facility] [address] [address] 02/22/2024 KALEIGH TERRELL Assessments Encounter Date Diagnosis [...] Insured Coverage Start Date Coverage End Date [facility] [address] [place], [place] [phone] [id number] Amy Lester Self - patient is the insured Medical (General) History Medical History History ICD Code dysuria cough sinusitis chronic, frontal GERD Surgical History Surgery Date(Month/Year) gallbladder removed
--- OUTSIDE RECORDS SUMMARY | 2025-01-03 15:55 | XMS_ITS | Continuity of Care Document ---
Author Organization [facility] Address [address] [address] Insurance Providers Payer Plan Claims Address Claims Phone Policy Number Group Number Relation Employer Guarantor Name Guarantor Guarantor Address Guarantor Phone [facility] [address], [place] [address] tel: [id number] [facility] [address], [place] [address] tel:[phone] [facility] HE[facility] PLAN [place] [employer] [facility] PL[facility] [id number] Problems Condition ICD9 code ICD10 code SNOMED code Start Date End Date S tatus Encounter for screening for other metabolic disorders Z13.228 Results Test Result Date/Time Value / Unit Interp. Refere nce Range Comp. Metabolic Panel (14)[3 89199] Collected: 10/09/2024 05:50 PM Specimen Received: 10/09/2024 05:00 AM Source: [facility] Glucose [146039] 10/10/2024 03:12 AM 89 mg/dL 70-99 mg/dL BUN [771703] 10/10/2024 03:12 AM 18 mg/dL 6-2 4 mg/dL Creatinine [751717] 10/10/2024 03:12 AM 0.72 mg/dL 0.57-1.00 mg/dL eGFR [683921] 10/10/2024 03:12 AM 97 mL/min/1.73 >59 mL/min/1.73 BUN/Creatinine Ratio [623022] 10/10/2024 03:12 AM 25 H 9-23 Sodium [710711] 10/10/2024 03:12 AM 144 mmol/L 134-144 mmol/L Potassium [915716] 10/10/2024 03:12 AM 4.5 mmol/L 3.5-5.2 mmol/L Chloride [246470] 10/10/2024 03:12 AM 107 mmol/L H 96-106 mmol/L Carbon Dioxide, Total [557694] 10/10/2024 03:12 AM 19 mmol/L L 20-29 mmol/L Calcium [132892] 10/10/2024 03:12 AM 9.4 mg/dL 8.7-10.2 mg/dL Protein, Total [120600] 10/10/2024 03:12 AM 6.1 g/dL 6.0-8.5 g/dL Albumin [482938] 10/10/2024 03:12 AM 4.2 g/dL 3.8-4.9 g/dL Globulin, Total [175046] 10/10/2024 03:12 AM 1.9 g/dL 1.5-4.5 g/dL Bilirubin, Total [771952] 10/10/2024 03:12 AM 0.2 mg/dL 0.0-1.2 mg/dL Alkaline Phosphatase [807192] 10/10/2024 04:44 AM 71 IU/L 44-121 IU/L AST (SGOT) [657946] 10/10/2024 03:12 AM 16 IU/L 0-40 IU/L ALT (SGPT) [111966] 10/10/2024 03:12 AM 14 IU/L 0-32 IU/L Lipid Panel[162745] Collected: 10/09/2024 05:50 PM Specimen Received: 10/09/2024 05:00 AM Source: [facility] Cholesterol, Total [270132] 10/10/2024 03:12 AM 177 mg/dL 100-199 mg/d L Triglycerides [123767] 10/10/2024 03:12 AM 65 mg/dL 0-149 mg/dL HDL Cholesterol [361566] 10/10/2024 03:12 AM 58 mg/dL >39 mg/dL VLDL Cholesterol Jaren [694188] 10/10/2024 03:12 AM 12 mg/dL 5-40 mg/dL LDL Chol Calc ([facility]) [069965] 10/10/2024 03:12 AM 107 mg/dL H 0-99 mg/dL Hemoglobin A1c[181457] Collected: 10/09/2024 05:50 PM Specimen Received: 10/09/2024 05:00 AM Source: [facility] Hemoglobin A1c [[id number]] 10/10/2024 06:03 AM 5.6 % 4.8-5.6 % . Prediabetes: 5.7 - 6.4 Katherine betes: >6.4 Glycemic control for adults with diabetes: 7.0 Allergies, adverse reactions, alerts No known allergies and adverse reactions Medications No administered medications reported Vital Signs No vital signs reported Social History No smoking Hx information available
--- OUTSIDE RECORDS SUMMARY | 2025-01-03 15:55 | XMS_ITS | Continuity of Care Document ---
Author Organization [facility] Address [address] [address] Insurance Providers Payer Plan Claims Address Claims Phone Policy Number Group Number Relation Employer Guarantor Name Guarantor Guarantor Address Guarantor Phone [facility] [address], [place] [address] tel: [phone] [id number] [facility] [address], [place] [address] tel:[phone] [facility] HEALTH PLAN [place] [facility] PLAN [id number] Problems Condition ICD9 code ICD10 code SNOMED code Start Date End Date S tatus Encounter for screening for other metabolic disorders Z13.228 Results Test Result Date/Time Value / Unit Interp. Refere nce Range Comp. Metabolic Panel (14)[3 46742] Collected: 10/09/2024 05:50 PM Specimen Received: 10/09/2024 05:00 AM Source: [facility] Glucose [[id number]] 10/10/2024 03:12 AM 89 mg/dL 70-99 mg/dL BUN [006097] 10/10/2024 03:12 AM 18 mg/dL 6-2 4 mg/dL Creatinine [843030] 10/10/2024 03:12 AM 0.72 mg/dL 0.57-1.00 mg/dL eGFR [561456] 10/10/2024 03:12 AM 97 mL/min/1.73 >59 mL/min/1.73 BUN/Creatinine Ratio [059759] 10/10/2024 03:12 AM 25 H 9-23 Sodium [718042] 10/10/2024 03:12 AM 144 mmol/L 134-144 mmol/L Potassium [131260] 10/10/2024 03:12 AM 4.5 mmol/L 3.5-5.2 mmol/L Chloride [032543] 10/10/2024 03:12 AM 107 mmol/L H 96-106 mmol/L Carbon Dioxide, Total [807781] 10/10/2024 03:12 AM 19 mmol/L L 20-29 mmol/L Calcium [085408] 10/10/2024 03:12 AM 9.4 mg/dL 8.7-10.2 mg/dL Protein, Total [665281] 10/10/2024 03:12 AM 6.1 g/dL 6.0-8.5 g/dL Albumin [142859] 10/10/2024 03:12 AM 4.2 g/dL 3.8-4.9 g/dL Globulin, Total [193079] 10/10/2024 03:12 AM 1.9 g/dL 1.5-4.5 g/dL Bilirubin, Total [301132] 10/10/2024 03:12 AM 0.2 mg/dL 0.0-1.2 mg/dL Alkaline Phosphatase [724410] 10/10/2024 04:44 AM 71 IU/L 44-121 IU/L AST (SGOT) [819436] 10/10/2024 03:12 AM 16 IU/L 0-40 IU/L ALT (SGPT) [145002] 10/10/2024 03:12 AM 14 IU/L 0-32 IU/L Lipid Panel[193727] Collected: 10/09/2024 05:50 PM Specimen Received: 10/09/2024 05:00 AM Source: [facility] Cholesterol, Total [669120] 10/10/2024 03:12 AM 177 mg/dL 100-199 mg/d L Triglycerides [470480] 10/10/2024 03:12 AM 65 mg/dL 0-149 mg/dL HDL Cholesterol [571889] 10/10/2024 03:12 AM 58 mg/dL >39 mg/dL VLDL Cholesterol Jaren [524928] 10/10/2024 03:12 AM 12 mg/dL 5-40 mg/dL LDL Chol Calc ([facility]) [553157] 10/10/2024 03:12 AM 107 mg/dL H 0-99 mg/dL Hemoglobin A1c[170688] Collected: 10/09/2024 05:50 PM Specimen Received: 10/09/2024 05:00 AM Source: [facility] Hemoglobin A1c [062204] 10/10/2024 06:03 AM 5.6 % 4.8-5.6 % . Prediabetes: 5.7 - 6.4 Katherine betes: >6.4 Glycemic control for adults with diabetes: 7.0 Allergies, adverse reactions, alerts No known allergies and adverse reactions Medications No administered medications reported Vital Signs No vital signs reported Social History No smoking Hx information available
--- OUTSIDE RECORDS SUMMARY | 2025-01-03 15:56 | XMS_ITS | Patient Health Record ---
Author Organization [facility] Address [address] [place] [address] Care Team Providers Care Data Developer Name Role Phone Rowan Downey MD Primary Care Provider Luca Daniels [phone] Reason For Referral No Information Encounters Encounter Location Date Provider Diagnosis [facility] [address] [place] [address] 02/22/2024 Luca Vasquez Plan Of Treatment No Information Insurance Providers Payer Name Payer Address Payer Phone Subscriber Number Group Number Insured Name Patient Relationship to Insured Coverage Start Date Coverage End Date [facility] [address] [place] [address] [id number] Amy Lester Self - patient is the insured
== END 2025-01-03 15:35 | disposition home or self-care (01) ==
PROVIDERS: PCP Internal Medicine; Visit Provider Physician Assistant Medical
DX: R42 Dizziness and giddiness (principal); R55 Syncope and collapse

== ENCOUNTER 2025-01-03 13:46 | Outpatient (REF) | payer OTHER, SELFPAY ==
[2025-01-03 16:18] LABS: MANUAL DIFF FLAG NO
[2025-01-03 16:26] LABS: Hematocrit 42.7 % (37.0-47.0); Hemoglobin 14.5 g/dl (12.0-16.0); Imm Gran Abs Auto 0.01 X10*3/uL (0.00-0.03); Imm Gran Pct Auto 0.2 % (0.0-0.4); Lymphocytes Absolute Auto 2.1 X10*3/uL (1.2-4.9); Mean Corpuscular HGB Conc 34.0 g/dl (31.0-35.0); Mean Corpuscular Hemoglobin 29.5 pg (27.0-33.0); Mean Corpuscular Volume 87.0 fL (80.0-98.0); NRBC Abs Auto 0.000 X10*3/uL (0.0-0.012); NRBC Pct Auto 0.0 /100WBC (0.0-0.2); Platelet Count 273 X10*3/uL (160-400); Red Blood Count 4.91 X10*6/uL (4.20-5.50); White Blood Count 5.4 X10*3/uL (4.8-10.8)
[2025-01-03 16:40] LABS: Hemoglobin A1C 133.1330 umol/L; Total Hemoglobin (HGBA1C) 3707.2113 umol/L
[2025-01-03 17:00] LABS: Alanine Aminotransferase 26 U/L (0-31); Albumin Level 4.6 g/dL (3.5-5.0); Alkaline Phosphatase 60 U/L (39-117); Anion Gap 13 (12-20); Aspartate Amino Transferase 27 U/L (5-31); Blood Urea Nitrogen 16 mg/dL (9-16); Calcium 9.7 mg/dL (8.4-10.2); Carbon Dioxide 27 mmol/L (22-29); Chloride 105 mmol/L (96-108); Estimated Glomerular Filt Rate > 60; Potassium 3.9 mmol/L (3.3-5.1); Sodium 141 mmol/L (135-145); Total Protein 7.1 g/dL (6.5-8.0)
== END 2025-01-03 13:47 | disposition home or self-care (01) ==
LOC: HO.HMGCLDS 13:46
PROVIDERS: PCP Internal Medicine; Visit Provider Physician Assistant Medical
DX: R55 Syncope and collapse (principal); R42 Dizziness and giddiness; R11.0 Nausea; J32.9 Chronic sinusitis, unspecified; Z13.1 Encounter for screening for diabetes mellitus
CPT/HCPCS: 36415; 80053; 83036; 84443; 85025